=== PATIENT | female | born 1985 | race Caucasian/White ===

== ENCOUNTER 2017-10-20 04:50 | Emergency (ER) | payer MEDICAID ==
[~2017-10-20] VITALS: Ht 154.9 cm; Wt 68.0 kg
[2017-10-20] MEDS ORDERED: DIPHENHYDRAMINE 50MG/ML VIAL IV ONE (05:30)
[2017-10-20] MEDS ORDERED: FAMOTIDINE 20MG/2ML VIAL IV ONE (05:30)
[2017-10-20] MEDS ORDERED: METHYLPREDNISOLONE SOD SUCC 125 MG/2 ML VIAL IV ONE (05:30)
[2017-10-20 06:53] VITALS: BP 127/89
== END 2017-10-20 06:52 | disposition home or self-care (01) ==
LOC: ER 04:50
DX: T78.1XXA Other adverse food reactions, not elsewhere classified, initial encounter (principal); L29.9 Pruritus, unspecified; R06.02 Shortness of breath; R07.9 Chest pain, unspecified; X58.XXXA Exposure to other specified factors, initial encounter
CPT/HCPCS: 81025; 96374; 96375; 99285; J1200; J2930; J3490; Z7610